=== PATIENT | male | born 1950 | race African-American/Black ===

== ENCOUNTER → 2023-01-11 09:22 | Outpatient (CLI) | payer MEDICARE, SELFPAY ==
--- NOTE | ~2023-01-11 | XR_ITS ---
AP and lateral views of the right hip Clinical history: Pain Findings: No acute fracture or dislocation is seen. Osseous alignment is anatomic. There is mild dege nerative change of the right hip joint. Soft tissues are unremarkable. Impression: Mild degenerative change of the right hip joint. Reviewed, dictated and finalized at location . ER APPRENTICE Impression: Mild degenerative change of the right hip joint.
== END ==
PROVIDERS: PCP Nurse Practitioner Adult Health; Visit Provider Nurse Practitioner Adult Health
DX: S76.011S Strain of muscle, fascia and tendon of right hip, sequela (principal); X58.XXXS Exposure to other specified factors, sequela; M16.11 Unilateral primary osteoarthritis, right hip
CPT/HCPCS: 73502

== ENCOUNTER → 2023-01-19 07:41 | Outpatient (CLI) | payer MEDICARE, SELFPAY ==
--- NOTE | ~2023-01-19 | MR_ITS ---
MRI of the right shoulder Technique: Axial proton-density fat-sat images, coronal proton density fat-sat and T2 fat-sat images, and sagittal T1-weighted and T2 fat-sat images were acquired. Clinical History: Pain Findings: There is severe AC joint degenerative change, with marked bony productive change and subacr omial spurring. Coracoclavicular, coracoacromial, and coracohumeral ligaments appear intact. There is advanced supraspinatus and infraspinatus tendinosis. There is probable minimal bursal surfac e fraying of the anterior, distal supraspinatus tendon, without high-grade partial or full-thickness tear. There is probable mild impingement related to the degenerative change at the AC joint. No infra spinatus tendon tear. Subscapularis tendon is intact, with moderate tendinosis. Tendon of long head o f the biceps is intact. There is focal fluid distention of the biceps tendon sheath at the bicipital groove region, suggestive tenosynovitis. There is probable superior degenerative labral tear. Inferior glenohumeral ligament is intact. No fluid distention of the subacromial/subdeltoid bursa. No muscle atrophy or edema. There is mild chondromalacia of the humeral head. Impression: Advanced rotator cuff tendinosis, as detailed above. Severe AC joint degenerative change, with probable mild impingement of the supraspinatus tendon with minimal bursal surface fraying of the distal, anterior supraspinatus tendon. Biceps tenosynovitis. Probable superior degenerative labral tear. Reviewed, dictated and finalized at [facility]. CIATE SCIENTIST Impression: Advanced rotator cuff tendinosis, as detailed above. Severe AC joint degenerative change, with probable mild impingement of the supr aspinatus tendon with minimal bursal surface fraying of the distal, anterior reynolds praspinatus tendon. Biceps tenosynovitis. Probable superior degenerative labral tear.
== END ==
PROVIDERS: PCP Nurse Practitioner Adult Health; Visit Provider Nurse Practitioner Adult Health
DX: M25.511 Pain in right shoulder (principal); M75.21 Bicipital tendinitis, right shoulder
CPT/HCPCS: 73221

== ENCOUNTER → 2023-02-01 08:47 | Outpatient (CLI) | payer MEDICARE, SELFPAY ==
--- NOTE | ~2023-02-01 | CT_ITS ---
CT Scan of the Chest without Contrast: Clinical Indication: Chest pain, myalgia Technique: Contiguous sections were acquired throughout the chest without intravenous contrast. Dose reduction technique was used on this scan by utilizing automated exposure control and iterative recon struction technique. The dose-length product (DLP) was 576.44 mGy-cm. Findings: There is no evidence of any significant mediastinal, hilar or axillary lymphadenopathy. The mediastin al soft tissues appear normal. There is no evidence of pleural or pericardial effusion. There are several subcentimeter, 2-3 mm peripheral right upper lobe pulmonary nodules. No other signi ficant pulmonary abnormality. Images through the upper abdomen reveal bilateral adrenal nodules, measuring 1.5 cm in diameter each. Impression: Several subcentimeter, 203 mm peripheral right upper lobe pulmonary nodules. According to Fleischner Society criteria, for a low-risk patient, no further follow-up required. For a high-risk patient, con academic vice president 12 month follow-up CT. Indeterminate 1.5 cm bilateral adrenal nodules. Consider follow-up MR to assess for adenomas, which a re the most likely diagnosis. Reviewed, dictated and finalized at [facility]. OL CROSSING GUARD Impression: Several subcentimeter, 203 mm peripheral right upper lobe pulmonary nodules. Ac cording to Fleischner Society criteria, for a low-risk patient, no further foll ow-up required. For a high-risk patient, consider 12 month follow-up CT. Indeterminate 1.5 cm bilateral adrenal nodules. Consider follow-up MR to assess for adenomas, which are the most likely diagnosis.
== END ==
PROVIDERS: PCP Nurse Practitioner Adult Health; Visit Provider Nurse Practitioner Adult Health
DX: M79.10 Myalgia, unspecified site (principal); R07.9 Chest pain, unspecified; R91.8 Other nonspecific abnormal finding of lung field
CPT/HCPCS: 71250

== ENCOUNTER 2023-07-20 13:07 | Outpatient (CLI) | payer MEDICARE, SELFPAY ==
--- NOTE | ~2023-07-20 | XR_ITS ---
EXAMINATION: 1. XR lg joint inject/asp w image 2. XR lg joint inject/asp add DATE: 07/20/2023 13:57 INDICATION: Bilateral hip arthritis. TECHNIQUE: A time-out was performed to verify the patient's name, date of , and procedure to b e performed. The procedure including the risks, benefits, and alternatives was discussed with the pat ient. Risks discussed included bleeding and infection. The patient understood the risks and agreed to proceed. The skin overlying the right hip joint was prepped and draped in usual sterile fashion. A nesthetic was administered with 1% lidocaine subcutaneously. A 22 G needle was advanced under fluoro scopic guidance into the joint. Subsequently, injectate consisting of 2 mL 0.5% bupivacaine and 1 mL 80 mg/mL Depo-Medrol was instilled. The needle was removed and the entry site was cleaned and dresse d. The skin overlying the left hip joint was prepped and draped in usual sterile fashion. Anesthetic wa s administered with 1% lidocaine subcutaneously. A 22 G needle was advanced under fluoroscopic georgina nce into the joint. Subsequently, injectate consisting of 2 mL 0.5% bupivacaine and 1 mL 80 mg/mL Dep o-Medrol was instilled. The needle was removed and the entry site was cleaned and dressed. There we re no immediate complications. Fluoroscopy exposure time was 0.1 minutes. The total number of images were 2. FINDINGS: Real-time fluoroscopy demonstrates the needle in the right hip joint. Patient's pain prior to procedure:7/10. Patient's pain following the procedure: 0/10. Real-time fluoroscopy demonstrates the needle in the left hip joint. Patient's pain prior to procedur e:5/10. Patient's pain following the procedure: 0/10. IMPRESSION: 1. Fluoroscopy guided right hip joint injection of local anesthetic and steroid with decrease in the patient's presenting pain. 2. Fluoroscopy guided left hip joint injection of local anesthetic and steroid with decrease in the p atient's presenting pain. Reviewed, dictated and finalized at location A. IMPRESSION: 1. Fluoroscopy guided right hip joint injection of local anesthetic and steroid with decrease in the patient's presenting pain. 2. Fluoroscopy guided left hip joint injection of local anesthetic and steroid with decrease in the patient's presenting pain.
== END 2023-07-20 13:08 | disposition home or self-care (01) ==
PROVIDERS: PCP Family Medicine; Visit Provider Nurse Practitioner Family
DX: M16.0 Bilateral primary osteoarthritis of hip (principal)
CPT/HCPCS: 20610; 77002; J1010

== ENCOUNTER 2024-10-20 08:18 | Outpatient (CLI) | payer MEDICARE, SELFPAY ==
--- NOTE | ~2024-10-20 | XR_ITS ---
EXAMINATION: XR lumbar spine 2-3V DATE: 10/20/2024 08:55 INDICATION: Low back pain Technique: 3 images of the lumbar spine were obtained COMPARISON: None. FINDINGS: Mild dextroconvex curvature of the lumbar spine. There is bowel gas and stool projecting over the pelvis which limits evaluation. There are a few less than 1.0 cm calcifications projecting over the pelvis which may represent phleboliths, however, a distal ureteral stone or bladder stone or possible. No compression fracture in the lumbar spine. Possible laminectomy at the L5 level. Severe intervertebral disc space narrowing at the L4-L5 and L5-S1 levels. Severe degenerative change in the lower lumbar facet joints. Calcifications are noted in the abdominal aorta. IMPRESSION: 1. Severe degenerative change in the lower lumbar spine. 2. Possible laminectomy at the L5 level. Correlate clinically. If symptoms persist or worsen, consider an MRI of the lumbar spine for further assessment. Reviewed, dictated and finalized at location Q.
--- NOTE | ~2024-10-20 | XR_ITS ---
EXAMINATION: XR shoulder RT min 2V DATE: 10/20/2024 08:55 INDICATION: Pain in right shoulder TECHNIQUE: 4 images of the right shoulder were obtained. COMPARISON: 02/25/2019 FINDINGS: Moderate degenerative change in the right acromioclavicular joint, unchanged. Mild to moderate degenerative change in the right glenohumeral joint, unchanged. No dislocation. Oblique lucency in the greater tuberosity of the right humeral head. No dislocation of the right humeral head. IMPRESSION: 1. Oblique lucency in the greater tuberosity of the right humeral head. Differential includes vascular channel or acute/subacute fracture. Correlate for point tenderness. 2. Degenerative change about the right shoulder as detailed above. If symptoms persist or worsen, consider a short-term follow-up study or additional imaging for further assessment. Reviewed, dictated and finalized at location Q. IMPRESSION: 1. Oblique lucency in the greater tuberosity of the right humeral head. Differe ntial includes vascular channel or acute/subacute fracture. Correlate for point tenderness. 2. Degenerative change about the right shoulder as detailed above. If symptoms persist or worsen, consider a short-term follow-up study or additio nal imaging for further assessment.
== END 2024-10-20 08:19 | disposition home or self-care (01) ==
LOC: MICIMG 08:20
PROVIDERS: PCP Family Medicine; Visit Provider Nurse Practitioner Family
DX: M25.511 Pain in right shoulder (principal); M51.369 Other intervertebral disc degeneration, lumbar region without mention of lumbar back pain or lower extremity pain; Z98.1 Arthrodesis status
CPT/HCPCS: 72100; 73030